=== PATIENT | female | born 1955 | race Caucasian/White ===

== ENCOUNTER → 2023-02-07 | Outpatient (CLI) | payer MEDICARE ==
--- NOTE | 2023-02-07 09:30 | MM ---
Reason for Exam: Clinical finding. Indicated Problems: Lump or thickening of the left side for 2 Month(s). Patient History: Menarche at age 11. Patient has no children. Postmenopausal. Breast cancer, left, age 56. 2011, Lumpectomy on the Left side. 2011, Radiation Therapy on the left side. Tissue Density: The breast tissue is heterogeneously dense. This may lower the sensitivity of mammography. Findings: Analyzed By CAD. Left breast biopsy clips. Scattered benign appearing calcifications. No new suspicious masses, calcifications or distortions. Overall Assessment: Incomplete: need additional imaging evaluation, BI-RAD 0 Management: Diagnostic Breast Ultrasound of the left breast. Results were given to the patient verbally at the time of exam. Patient should continue monthly self-breast exams. A clinical breast exam by your physician is recommended on an annual basis. This exam should not preclude additional follow-up of suspicious palpable abnormalities. Note on Destiny scores and lifetime risk: 1. A Destiny score greater than 3% is considered moderate risk. If this is the case, consider specialist referral to assess eligibility for a risk reducing agent. 2. If overall lifetime risk for the development of breast cancer is 20% or higher, the patient may qualify for future screening with alternating mammogram and breast MRI. Electronically signed and approved by: Timothy Webber DO
--- NOTE | 2023-02-07 09:33 | USB ---
Reason for Exam: Clinical finding. Patient History: Menarche at age 11. Patient has no children. Postmenopausal. Breast cancer, left, age 56. 2011, Lumpectomy on the Left side. 2011, Radiation Therapy on the left side. Technique: Method: Targeted. Prior Study Comparison: 01/21/2018 Bilateral Screening Mammogram, Unknown. 02/02/2019 Bilateral Screening Mammogram, Unknown. 10/24/2022 Bilateral Screening Mammogram, Unknown. Findings: The lower section of the breast of the left breast, the axilla of the left breast and the retroareolar of the left breast were scanned. Technique utilized:US breast limited LT Image; Ultrasound imaging of: Area of concern, retroareolar region and axilla. Posttreatment changes to the left breast in the area of prior surgery. There is a hyperechoic area which is felt to represent calcification in anechoic areas felt to represent possible small cystic change. No suspicious lesion identified. No evidence for organizing fluid collection or mass. Overall Assessment: Benign, BI-RAD 2 Management: Screening Mammogram of both breasts in 1 year. Clinical management recommended for postop changes. A clinical breast exam by your physician is recommended on an annual basis and results should be correlated with mammographic findings. This exam should not preclude additional follow-up of suspicious palpable abnormalities. Results were given to the patient verbally at the time of exam. Electronically signed and approved by: Timothy Webber DO
== END | disposition home or self-care (01) ==
LOC: RADMAMWWP 07:25
PROVIDERS: ATTEND Student in an Organized Health Care Education/Training Program
DX: N64.59 Other signs and symptoms in breast (principal); R92.333 Mammographic heterogeneous density, bilateral breasts; Z78.0 Asymptomatic menopausal state; Z85.3 Personal history of malignant neoplasm of breast
CPT/HCPCS: 77066; 76642; G0279; 77062

== ENCOUNTER → 2023-03-01 | Outpatient (CLI) | payer MEDICARE ==
--- NOTE | 2023-03-04 14:46 | BMR ---
EXAM DATE: 03/03/2023 EXAM DESCRIPTION: MRI-Breast Bilat (W/WO Contrast) INDICATION: Left breast palpable at this site of scar. COMPARISON: Comparison is made with relevant prior imaging in PACS. CONTRAST: 10 cc of gadobutrol TECHNIQUE: Multiplanar MRI imaging of both breasts was performed with a dedicated breast coil, before and after intravenous administration of gadolinium contrast, using the standard breast mass protocol. Computer-aided detection was used to aid in interpretation. Study was performed at [facility] with Radiologic interpretation by [facility]. FINDINGS: General breast composition: There are scattered areas of fibroglandular tissue Background parenchymal enhancement: Minimal FINDINGS: Right Breast: Review of the dynamic contrast-enhanced series shows no rapidly enhancing masses, suspicious enhancement patterns or other abnormalities. The T2 weighted series shows no abnormality. Left Breast: Review of the dynamic contrast-enhanced series shows post treatment changes in the left inner breast. No rapidly enhancing masses, suspicious enhancement patterns or other abnormalities. The T2 weighted series shows no abnormality. Miscellaneous: Artifact from surgical material present in the upper abdomen soft tissue. IMPRESSION: Right Breast: BI-RADS Category1- Negative No MRI evidence of malignancy. Recommendation: MRI screening in 1 year Left Breast: BI-RADS Category 1- Negative Posttreatment changes are present in the left breast. No MRI evidence of malignancy. Recommendation: MRI screening in 1 year Management of breast palpable should be based on the clinical level of concern. Clinical evaluation and follow-up are recommended, with management to be determined based on the clinical assessment. OVERALL ASSESSMENT -- BI-RADS 2 MTDD
== END | disposition home or self-care (01) ==
LOC: RADMRIMAIN 14:25
PROVIDERS: ATTEND Surgery
DX: R92.8 Other abnormal and inconclusive findings on diagnostic imaging of breast (principal)
CPT/HCPCS: C8908; A9585; 77049